=== PATIENT | female | born 1980 | race Caucasian/White ===

== ENCOUNTER 2025-06-01 11:15 | Inpatient (IN) | payer OTHER ==
[~2025-06-01] VITALS: Ht 152.4 cm; Wt 65.3 kg
[2025-06-01] MEDS ORDERED: INTEGRA F CAPS1 EACH PO (14:05)
[2025-06-01] MEDS ORDERED: PROBIOTIC250 MG PO (14:05)
[2025-06-01] MEDS ORDERED: FLORANEX TABLE1 EACH PO (14:05)
[2025-06-01] MEDS ORDERED: ZINC GLUCONATE100 MG PO (14:05)
[2025-06-01 14:06] VITALS: BP 130/77
[2025-06-07] MEDS ORDERED: LIDOCAINE HCL 1%/EPINEPHRINE 20ML VIAL IJ ONE (12:10)
[2025-06-07] MEDS ORDERED: BUPIVACAINE HCL/MPF 0.5% 30ML VIAL ONE (12:10)
[2025-06-07] MEDS ORDERED: CEFTRIAXONE SODIUM 2,000 MG VIAL ONE (12:11)
[2025-06-07] MEDS ORDERED: METRONIDAZOLE/SODIUM CHLORIDE 500 MG/100 ML PIGGYBACK IV ONE (12:11)
[2025-06-07] MEDS ORDERED: 0.9 % SODIUM CHLORIDE 1,000 ML IV SCH (14:45)
[2025-06-07] MEDS ORDERED: ONDANSETRON HCL 2 MG/ML VIAL IV PRN (14:45)
[2025-06-07] MEDS ORDERED: DEXTROSE 50 % IN WATER 0.5 G/ML DISP.SYRIN IV PRN (14:45)
[2025-06-07] MEDS ORDERED: MORPHINE SULFATE 4 MG/ML CARTRIDGE IV PRN (14:45)
[2025-06-07] MEDS ORDERED: OxyCODONE HCL 5 MG TABLET (ROXICODONE) PO PRN (14:45)
[2025-06-07] MEDS ORDERED: MORPHINE SULFATE 2 MG/ML SYRINGE IV ONE (15:45)
[2025-06-07] MEDS ORDERED: DIPHENHYDRAMINE HCL 50 MG/ML VIAL 1ML IV PRN (16:00)
[2025-06-07] MEDS ORDERED: HYOSCYAMINE SULFATE 0.125 MG TAB.SUBL SL SCH (17:00)
[2025-06-07] MEDS ORDERED: METRONIDAZOLE/SODIUM CHLORIDE 500 MG/100 ML PIGGYBACK IV SCH (17:00)
[2025-06-07] MEDS ORDERED: GABAPENTIN 300 MG CAPSULE PO SCH (17:00)
[2025-06-07 18:15] LABS: BASO % 0.1 % (0.1-1.2); EOS # 0.00 (0.04-0.54); EOS % 0.0 % (0.7-7.0); LYMPH # 0.75 (1.18-3.74); LYMPH % 5.8 % (19.3-53.1); MEAN PLATELET VOLUME 11.70 fl (9.4-12.4); MONO # 0.69 (0.24-0.82); MONO % 5.4 % (4.7-12.5); NEUT # 11.41 (1.56-6.13); NEUT % 88.5 % (34.0-71.1); RED CELL DISTRIBUTION WIDTH 13.2 % (11.6-14.4)
[2025-06-07 18:31] LABS: BUN CREA RATIO 8.0 (7.0-25.0); CREATININE SERUM 0.49 mg/dL (0.55-1.02); GFR 137.19; GLUCOSE FASTING 113.0 mg/dL (65-100); OSMOLALITY SERUM 277.0 MOSM/KG (275-295)
[2025-06-07 19:15] VITALS: BP 130/77; O2SAT 97
[2025-06-07] MEDS ORDERED: ACETAMINOPHEN 500 MG GEL..CAP PO SCH (20:00)
[2025-06-07] MEDS ORDERED: FAMOTIDINE/PF 20 MG/2 ML VIAL IV PUSH SCH (21:00)
[2025-06-08 01:27] VITALS: BP 110/73; O2SAT 100
[2025-06-08 06:40] LABS: BASO % 0.2 % (0.1-1.2); EOS # 0.01 (0.04-0.54); EOS % 0.1 % (0.7-7.0); LYMPH # 1.12 (1.18-3.74); LYMPH % 8.9 % (19.3-53.1); MEAN PLATELET VOLUME 12.10 fl (9.4-12.4); MONO # 1.02 (0.24-0.82); MONO % 8.1 % (4.7-12.5); NEUT # 10.33 (1.56-6.13); NEUT % 82.4 % (34.0-71.1); RED CELL DISTRIBUTION WIDTH 13.2 % (11.6-14.4)
[2025-06-08 07:30] VITALS: BP 107/67; O2SAT 99
[2025-06-08 07:40] LABS: BUN CREA RATIO 9.0 (7.0-25.0); CREATININE SERUM 0.44 mg/dL (0.55-1.02); GFR 155.34; GLUCOSE FASTING 102.0 mg/dL (65-100); OSMOLALITY SERUM 275.0 MOSM/KG (275-295)
[2025-06-08 17:03] VITALS: BP 100/66
[2025-06-09 01:15] VITALS: BP 101/68; O2SAT 99
[2025-06-09 07:31] LABS: BASO % 0.2 % (0.1-1.2); EOS # 0.04 (0.04-0.54); EOS % 0.5 % (0.7-7.0); LYMPH # 0.98 (1.18-3.74); LYMPH % 11.4 % (19.3-53.1); MEAN PLATELET VOLUME 12.20 fl (9.4-12.4); MONO # 0.77 (0.24-0.82); MONO % 9.0 % (4.7-12.5); NEUT # 6.74 (1.56-6.13); NEUT % 78.6 % (34.0-71.1); RED CELL DISTRIBUTION WIDTH 13.6 % (11.6-14.4)
[2025-06-09 07:55] VITALS: BP 113/75
[2025-06-09 07:58] LABS: BUN CREA RATIO 12.0 (7.0-25.0); CREATININE SERUM 0.5 mg/dL (0.55-1.02); GFR 134.03; GLUCOSE FASTING 90.0 mg/dL (65-100); OSMOLALITY SERUM 280.0 MOSM/KG (275-295)
[2025-06-09] MEDS ORDERED: ENOXAPARIN SODIUM 40 MG/0.4 ML SYRINGE SUBCUTANEO SCH (09:00)
[2025-06-09] MEDS ORDERED: SOD FERRIC GLUC COMPLX/SUCROSE 62.5 MG in 0.9 % SODIUM CHLORIDE 50 ML IV SCH (10:55)
[2025-06-09] MEDS ORDERED: Cyanocobalamin/Mecobalamin 1 TAB.SL SL SCH (10:56)
[2025-06-09 16:45] VITALS: BP 99/65; O2SAT 99
[2025-06-09 23:40] VITALS: BP 107/71; O2SAT 95
[2025-06-10 08:00] VITALS: BP 106/68; O2SAT 99
[2025-06-10] MEDS ORDERED: HYOSCYAMINE0.125 M1 SL (13:45)
[2025-06-10] MEDS ORDERED: TRAM1TAB98 PO (13:45)
[2025-06-10] MEDS ORDERED: PEPCID AC20 MG PO (13:45)
== END 2025-06-10 15:11 | disposition home or self-care (01) | DRG 330 ==
LOC: O/R 06-07 11:00 → SURH 06-07 11:15 → SURG 06-07 18:02
PROVIDERS: Internal Medicine Geriatric Medicine; ADMIT Surgery; ATTEND Surgery
PROC: 0DTB4ZZ Resection of Ileum, Percutaneous Endoscopic Approach (ICD-10-PCS; 2025-06-07)
PROC: 0DBK4ZZ Excision of Ascending Colon, Percutaneous Endoscopic Approach (ICD-10-PCS; principal; 2025-06-07 16:00)
DX: C17.2 Malignant neoplasm of ileum (principal); C78.7 Secondary malignant neoplasm of liver and intrahepatic bile duct

== ENCOUNTER 2025-07-16 14:54 | Emergency (ER) | payer OTHER ==
[~2025-07-16] VITALS: Ht 152.4 cm; Wt 63.5 kg
[~2025-07-16 14:54] MED LIST: FLORANEX TABLE1 EACH PO; HYOSCYAMINE0.125 M1 SL; INTEGRA F CAPS1 EACH PO; PEPCID AC20 MG PO; PROBIOTIC250 MG PO; TRAM1TAB98 PO; ZINC GLUCONATE100 MG PO
[2025-07-16 19:24] LABS: BASO % 0.3 % (0.1-1.2); EOS # 0.06 (0.04-0.54); EOS % 1.0 % (0.7-7.0); LYMPH # 1.98 (1.18-3.74); LYMPH % 34.6 % (19.3-53.1); MEAN PLATELET VOLUME 11.80 fl (9.4-12.4); MONO # 0.39 (0.24-0.82); MONO % 6.8 % (4.7-12.5); NEUT # 3.27 (1.56-6.13); NEUT % 57.1 % (34.0-71.1); RED CELL DISTRIBUTION WIDTH 12.6 % (11.6-14.4)
[2025-07-16 19:44] LABS: INR 1.04
[2025-07-16 19:51] LABS: ALT/SGPT 16.0 U/L (12-78); AST/SGOT 13.0 U/L (15-37); BILIRUBIN TOTAL 0.6 mg/dL (0.3-1.2); BUN CREA RATIO 22.0 (7.0-25.0); CREATININE SERUM 0.63 mg/dL (0.55-1.02); GFR 102.19; GLOBULINA 3.4 G/DL (2.4-3.5); GLUCOSE FASTING 136.0 mg/dL (65-100); OSMOLALITY SERUM 280.0 MOSM/KG (275-295)
[2025-07-16 20:23] LABS: URINE APPEARANCE Clear; URINE BILIRRUBIN Negative (NEGATIVE); URINE BLOOD Large; URINE COLOR Yellow; URINE GLUCOSE Negative (NEGATIVE); URINE KETONE Trace (NEGATIVE); URINE LEUKOCYTE Negative; URINE NITRATE Negative; URINE PROTEIN Negative (NEGATIVE); URINE UROBILINOGEN 0.2 E.U./dl
[2025-07-16 20:27] LABS: URINE BACTERIA 10.7 uL (0.0-1933); URINE EPITHELIAL CELLS 3.2 uL (0.0-38.8); URINE RBC 340.2 uL (0.0-20.8); URINE WBC 2.3 uL (0.0-23.2)
[2025-07-16 20:34] LABS: URINE CAST 0.00 uL (0.0-1.40)
== END 2025-07-16 23:06 ==
LOC: ER 14:54
PROVIDERS: General Practice
DX: R00.2 Palpitations (principal); Z91.013 Allergy to seafood; Z88.8 Allergy status to other drugs, medicaments and biological substances; Z85.848 Personal history of malignant neoplasm of other parts of nervous tissue; Z85.05 Personal history of malignant neoplasm of liver; T50.905A Adverse effect of unspecified drugs, medicaments and biological substances, initial encounter; R00.1 Bradycardia, unspecified